=== PATIENT | female | born 1955 | race American Indian/Alaskan Native ===

== ENCOUNTER 2016-08-18 15:38 | Outpatient (CLI) | payer OTHER ==
--- NOTE | 2016-08-19 15:24 | Mammography Report ---
BILATERAL DIGITAL SCREENING MAMMOGRAM with CAD: 08/18/16 15:38:00 CLINICAL: Routine screening. COMPARISON:None. Her last mammogram was over ten years ago. FINDINGS: The breasts are heterogeneously dense, which may obscure small masses.Right asymmetries and left calcifications require additional imaging.The calcifications are only identified on the CC view. IMPRESSION: Right asymmetries and left calcifications requiring further workup. BI-RADS CATEGORY: 0 -- Additional Imaging Evaluation Required RECOMMENDATION: Recall for right spot compression views and right breast ultrasound if the asymmetries persist. Recommend a left CC magnification view and whole left breast lateral magnification views. ACR BI-RADS MAMMOGRAPHIC CODES: 0 = Needs additional imaging evaluation; 1 = Negative; 2 = Benign; 3 = Probably benign; 4 = Suspicious; 5 = Malignant; 6 = Known biopsy-proven malignancy COMMENT: 1. Dense breast tissue, i.e., adenosis, fibrocystic changes, etc., may obscure an underlying neoplasm. 2. Approximately 10% of cancers are not detected with mammography. 3. A negative mammography report should not delay biopsy if a clinically suspicious mass is present. COMMENT: Patient follow-up letters are generated via our [employer] application.
== END 2016-08-18 15:39 | disposition home or self-care (01) ==
LOC: SPVWC 15:38
PROVIDERS: ATTEND General Practice
DX: Z12.31 Encounter for screening mammogram for malignant neoplasm of breast (principal)
CPT/HCPCS: 77067; G0202

== ENCOUNTER 2018-09-21 22:28 | Emergency (ER) | payer MEDICARE, OTHER ==
--- NOTE | 2018-09-21 22:37 | Event Note ---
ED Screening Note ED Screening Note: l lower mandibular pain no abscess recently to the dentist This initial assessment/diagnostic orders/clinical plan/treatment(s) is/are subject to change based on patients health status, clinical progression and re- assessment by fellow clinical providers in the ED. Further treatment and workup at subsequent clinical providers discretion. Patient/guardian urged not to elope from the ED as their condition may be serious if not clinically assessed and managed. Initial orders include:
[2018-09-21 22:38] VITALS: BP 120/73
--- NOTE | 2018-09-22 00:37 | Emergency Department Report ---
ED ENT HPI - General Chief complaint: Dental/Oral Stated complaint: TOOTHACHE Time Seen by Provider: 09/21/18 22:35 Source: patient Mode of arrival: Ambulatory Limitations: No Limitations - History of Present Illness Initial comments: 63-year-old female status post dental filling on August 28 with her dentist and since that has been having progressively worsening pain to the right lower molar where the filling was placed. Reports no fever. Follow up taste of bleeding. She has return to the [facility] since the pain had begun but was advised to wait which she tried to do. The pain has continued and she has not been able to go back to to the [facility]. Now out of town. Portable numbness or tingling. No fevers, chills, sweats. No odynophagia or dysphagia MD complaint: tooth pain -: Gradual Location: tooth # Severity: mild Consistency: constant Improves with: none Worsens with: none Context- Dental: history of dental caries - Related Data Previous Rx's Medication Instructions Recorded Last Taken Type HYDROcodone/APAP 5-325 [[place] 1 each PO Q6HR PRN #20 tablet 06/10/14 Unknown Rx 5-325 mg TAB] Insulin Glargine [Lantus] 35 unit SUB-Q QHS #30 day 06/10/14 Unknown Rx Lisinopril 10 mg PO DAILY #30 tablet 06/10/14 08/28/18 Rx Amoxicillin [Amoxicillin TAB] 875 mg PO BID #20 tablet 09/22/18 Unknown Rx Chlorhexidine Mouthwash [Peridex] 15 ml MM BID #473 bottle 09/22/18 Unknown Rx Ketorolac [Toradol] 10 mg PO Q6H PRN #15 tablet 09/22/18 Unknown Rx Lidocaine Viscous 2% 5 ml MM Q3H PRN #120 udc 09/22/18 Unknown Rx Allergies Allergy/AdvReac Type Severity Reaction Status Date / Time No Known Allergies Allergy Verified 06/09/14 22:00 ED Dental HPI - General Chief complaint: Dental/Oral Stated complaint: TOOTHACHE Time Seen by Provider: 09/21/18 22:35 Source: patient Mode of arrival: Ambulatory Limitations: No Limitations - Related Data Previous Rx's Medication Instructions Recorded Last Taken Type HYDROcodone/APAP 5-325 [[place] 1 each PO Q6HR PRN #20 tablet 06/10/14 Unknown Rx 5-325 mg TAB] Insulin Glargine [Lantus] 35 unit SUB-Q QHS #30 day 06/10/14 Unknown Rx Lisinopril 10 mg PO DAILY #30 tablet 06/10/14 08/28/18 Rx Amoxicillin [Amoxicillin TAB] 875 mg PO BID #20 tablet 09/22/18 Unknown Rx Chlorhexidine Mouthwash [Peridex] 15 ml MM BID #473 bottle 09/22/18 Unknown Rx Ketorolac [Toradol] 10 mg PO Q6H PRN #15 tablet 09/22/18 Unknown Rx Lidocaine Viscous 2% 5 ml MM Q3H PRN #120 udc 09/22/18 Unknown Rx Allergies Allergy/AdvReac Type Severity Reaction Status Date / Time No Known Allergies Allergy Verified 06/09/14 22:00 ED Review of Systems ROS: Stated complaint: TOOTHACHE Other details as noted in HPI Constitutional: denies: chills, fever Eyes: denies: eye pain, eye discharge, vision change ENT: dental pain. denies: ear pain, throat pain Respiratory: denies: cough, shortness of breath, wheezing Cardiovascular: denies: chest pain, palpitations Endocrine: no symptoms reported Gastrointestinal: denies: abdominal pain, nausea, diarrhea Genitourinary: denies: urgency, dysuria, discharge Musculoskeletal: denies: back pain, joint swelling, arthralgia Skin: denies: rash, lesions Neurological: denies: headache, weakness, paresthesias Psychiatric: denies: anxiety, depression Hematological/Lymphatic: denies: easy bleeding, easy bruising ED Past Medical Hx - Past Medical History Previous Medical History?: Yes Hx Hypertension: Yes Hx Diabetes: Yes (insulin-dependent diabetes) Hx Arthritis: Yes Additional medical history: diverticulitis, sleep apnea, chronic back pain due to herniated disc.SCIATICA,CARPAL TUNNEL - Surgical History Past Surgical History?: Yes Hx Cholecystectomy: Yes Additional Surgical History: hysterectomy. x 2. . neck surgery x 2 - Social History Smoking Status: Never Smoker - Medications Home Medications: Home Medications Medication Instructions Recorded Confirmed Last Taken Type HYDROcodone/APAP 5-325 [[place] 1 each PO Q6HR PRN #20 tablet 06/10/14 Unknown Rx 5-325 mg TAB] Insulin Glargine [Lantus] 35 unit SUB-Q QHS #30 day 06/10/14 Unknown Rx Lisinopril 10 mg PO DAILY #30 tablet 06/10/14 08/28/18 Rx Amoxicillin [Amoxicillin TAB] 875 mg PO BID #20 tablet 09/22/18 Unknown Rx Chlorhexidine Mouthwash [Peridex] 15 ml MM BID #473 bottle 09/22/18 Unknown Rx Ketorolac [Toradol] 10 mg PO Q6H PRN #15 tablet 09/22/18 Unknown Rx Lidocaine Viscous 2% 5 ml MM Q3H PRN #120 udc 09/22/18 Unknown Rx ED Physical Exam - General Limitations: No Limitations General appearance: alert, in no apparent distress - Head Head exam: Present: atraumatic, normocephalic - Eye Eye exam: Present: normal appearance - ENT ENT exam: Present: normal orophraynx, mucous membranes moist, other (dental fillings are visualized pain with palpation to the left lower molar. No adjacent abscess is appreciated. No significant erythema.) - Neck Neck exam: Present: normal inspection. Absent: full ROM, lymphadenopathy - Respiratory Respiratory exam: Present: normal lung sounds bilaterally. Absent: respiratory distress - Cardiovascular Cardiovascular Exam: Present: regular rate, normal rhythm. Absent: systolic murmur, diastolic murmur, rubs, gallop - GI/Abdominal GI/Abdominal exam: Present: soft, normal bowel sounds - Extremities Exam Extremities exam: Present: normal inspection - Back Exam Back exam: Present: normal inspection - Neurological Exam Neurological exam: Present: alert, oriented X3 - Psychiatric Psychiatric exam: Present: normal affect, normal mood - Skin Skin exam: Present: warm, dry, intact, normal color. Absent: rash ED Course Vital Signs 09/21/18 22:33 Temperature 98.1 F Pulse Rate 85 Respiratory 16 Rate Blood Pressure 120/73 O2 Sat by Pulse 99 Oximetry ED Medical Decision Making - Medical Decision Making 63-year-old female with post-dental filling pain. No evidence of any an active infection. Advised to follow-up with the dentist to have the filling removed or adjusted. We'll give her something to help with the discomfort antimicrobials rinse but there is no active infectious processes visualized. Also possibility of an underlying root abscess, so we'll give her a round of antibiotics as Critical care attestation.: If time is entered above; I have spent that time in minutes in the direct care of this critically ill patient, excluding procedure time. ED Disposition Clinical Impression: Dentalgia Disposition: DC- TO HOME OR SELFCARE Is pt being admited?: No Does the pt Need Aspirin: No Condition: Stable Instructions: Dental Caries (ED), Toothache (ED) Prescriptions: Amoxicillin [Amoxicillin TAB] 875 mg PO BID #20 tablet Lidocaine Viscous 2% 5 ml MM Q3H PRN #120 udc PRN Reason: Pain, Moderate (4-6) Chlorhexidine Mouthwash [Peridex] 15 ml MM BID #473 bottle Ketorolac [Toradol] 10 mg PO Q6H PRN #15 tablet PRN Reason: Pain Referrals: CARYL SHAY MD [Primary Care Provider] - 3-5 Days [facility] [Outside] - 3-5 Days
[2018-09-22] MEDS ORDERED: NORCO 5/325 PO ONE (01:00)
[2018-09-22] MEDS ORDERED: NORCO 5/325 ONE (01:01)
== END 2018-09-22 01:15 | disposition home or self-care (01) ==
LOC: ED 22:28
DX: K08.89 Other specified disorders of teeth and supporting structures (principal); I10 Essential (primary) hypertension; E11.9 Type 2 diabetes mellitus without complications; M19.90 Unspecified osteoarthritis, unspecified site; G89.29 Other chronic pain; Z90.710 Acquired absence of both cervix and uterus; Z90.49 Acquired absence of other specified parts of digestive tract; Z79.899 Other long term (current) drug therapy
CPT/HCPCS: 99282